=== PATIENT | male | born 1980 | race African-American/Black ===

== ENCOUNTER 2017-07-04 18:26 | Emergency (ER) | payer OTHER ==
[~2017-07-04] VITALS: Ht 175.3 cm; Wt 86.2 kg
[2017-07-04] MEDS ORDERED: ZANTAC 7575 MG PO (18:40)
[2017-07-04] MEDS ORDERED: PREDNISONE 20 M20 MG PO (19:16)
[2017-07-04] MEDS ORDERED: ATIVAN1 MG PO (19:17)
[2017-07-04 19:51] VITALS: BP 148/83
== END 2017-07-04 19:52 | disposition home or self-care (01) ==
LOC: ER 18:26
DX: R06.02 Shortness of breath (principal); L25.9 Unspecified contact dermatitis, unspecified cause; F41.0 Panic disorder [episodic paroxysmal anxiety]

== ENCOUNTER 2021-01-21 10:58 | Emergency (ER) | payer OTHER ==
[~2021-01-21] VITALS: Ht 177.8 cm; Wt 88.5 kg
[~2021-01-21 10:58] MED LIST: ATIVAN1 MG PO; PREDNISONE 20 M20 MG PO; ZANTAC 7575 MG PO
[2021-01-21 11:26] VITALS: BP 137/89
== END 2021-01-21 12:38 | disposition home or self-care (01) ==
LOC: ER 10:58
DX: M25.462 Effusion, left knee (principal); F12.90 Cannabis use, unspecified, uncomplicated